=== PATIENT | female | born 1985 | race Two or more races ===

== ENCOUNTER → 2022-09-14 16:50 | Emergency (ER) | payer MEDICAID, OTHER ==
[~2022-09-14 16:50] MED LIST: BUPIVACAINE 0.25% INJ 50ML VIAL ONE; CEPH-510 PO; DOCU-94 PO; FERR1TAB36 PO; NITR-87 PO; TRAM50TA2 PO
== END | disposition left against medical advice (07) ==
LOC: ER 16:50
DX: R10.9 Unspecified abdominal pain (principal); Z53.21 Procedure and treatment not carried out due to patient leaving prior to being seen by health care provider

== ENCOUNTER 2022-09-15 04:02 | Inpatient (IN) | payer MEDICAID ==
[~2022-09-15] VITALS: Ht 160 cm; Wt 83.4 kg
[2022-09-15 05:45] LABS: Basophils # (auto) 0.1 10 ^3/uL (0-0.2); Basophils % (auto) 0.6 % (0.0-2.0); Eosinophils # (auto) 0.1 10 ^3/uL (0-0.8); Eosinophils % (auto) 0.9 % (0.0-7.0); Hematocrit 38.8 % (36.0-46.0); Hemoglobin 12.1 g/dL (12.2-16.2); Lymphocytes # (auto) 1.1 10 ^3/uL (0.4-5.4); Lymphocytes % (auto) 9.4 % (10.0-50.0); Mean Corpuscular Hemoglobin 26.8 pg (28.0-32.0); Mean Corpuscular Hgb Conc. 31.3 g/dL (32.0-36.0); Mean Corpuscular Volume 85.6 fL (80.0-100.0); Monocytes # (auto) 0.8 10 ^3/uL (0-1.3); Monocytes % (auto) 6.3 % (0.0-12.0); Neutrophils # (auto) 10.1 10 ^3/uL (1.6-8.6); Neutrophils % (auto) 82.8 % (37.0-80.0); Red Blood Cells 4.53 10^6/uL (4.0-5.20); White Blood Cell 12.2 10^3/uL (4.4-10.8)
[2022-09-15 06:08] LABS: Albumin 3.5 g/dL (3.4-5.0); Calcium 9.3 mg/dL (8.5-10.1); Potassium 4.4 mmol/L (3.5-5.1)
[2022-09-15 06:12] LABS: Bilirubin, Total 0.4 mg/dL (0.2-1.0)
[2022-09-15 06:34] LABS: Urine Bacteria FEW /hpf (None Seen); Urine Blood 3+ /uL (Negative); Urine Mucus FEW (None Seen); Urine Specific Gravity 1.014 (1.001-1.035); Urine WBC 4 /hpf (0 - 5)
[2022-09-15] MEDS ORDERED: LIDOCAINE VISCOUS 2% 15ML UD PO ONE (07:00)
[2022-09-15] MEDS ORDERED: ALUM & MAG HYDROX-SIMETH LIQ(MAALOX) 30 ML PO ONE (07:00)
[2022-09-15] MEDS ORDERED: DONNATAL 5ml ORAL Elix (BELLADONNA ALK-PHENOBARB) PO ONE (07:00)
[2022-09-15] MEDS ORDERED: NITR-87 PO (08:03)
[2022-09-15] MEDS ORDERED: ceFAZolin 1GM/50ML 50 ML IV ONE (09:15)
[2022-09-15] MEDS ORDERED: metroNIDAZOLE 500MG/100ML 100 ML IV ONE (09:15)
[2022-09-15] MEDS ORDERED: ONDANSETRON HCL 4 MG/2 ML VIAL IV PRN ×2 (09:45→13:45)
[2022-09-15] MEDS ORDERED: MORPHINE SULFATE INJ 2 MG/ml SYRG IV PRN (09:45)
[2022-09-15] MEDS ORDERED: HYDROcodone-ACET 5/325MG TAB PO PRN (09:45)
[2022-09-15] MEDS ORDERED: ACETAMINOPHEN 325 MG TAB PO PRN (09:45)
[2022-09-15] MEDS ORDERED: SODIUM CHLORIDE 0.9% 1,000 ML IV SCH (09:45)
[2022-09-15] MEDS ORDERED: SUCCINYLCHOLINE CHLORIDE 20 MG/ML 10ML VIAL IV ONE (11:39)
[2022-09-15] MEDS ORDERED: ROCURONIUM 10MG/ML 10ML VIAL IV ONE (11:39)
[2022-09-15] MEDS ORDERED: FAMOTIDINE (10MG/ML) 2ML VL IV ONE (11:39)
[2022-09-15] MEDS ORDERED: ceFAZolin 1GM/50ML 100 ML IV ONE (11:41)
[2022-09-15 11:43] LABS: INR 1.06 (0.9-1.15); Partial Thromboplastin Time 32.2 sec (24.6-33.4)
[2022-09-15] MEDS ORDERED: fentaNYL CITRATE 100 MCG/2 ML VL ONE (11:44)
[2022-09-15] MEDS ORDERED: HYDROmorphone HCL 2 MG/ML VL/or syr ONE (11:44)
[2022-09-15] MEDS ORDERED: MIDAZOLAM HCL 2MG/2ML 2ml VIAL (1mg/ml) ONE (11:44)
[2022-09-15] MEDS ORDERED: ONDANSETRON HCL 4 MG/2 ML VIAL ONE (11:45)
[2022-09-15] MEDS ORDERED: DexAMETHasone SOD PHOS 10MG/1ML VIAL INJ ONE (11:45)
[2022-09-15] MEDS ORDERED: LIDOCAINE 2% (LOCAL ANESTH.) PF 5ml SDV ONE (11:45)
[2022-09-15] MEDS ORDERED: KETOROLAC TROMETH 30 MG/ML 1ML VIAL ONE (11:45)
[2022-09-15] MEDS ORDERED: GLYCOPYRROLATE 0.2 MG/ML 1ML VIAL ONE (11:45)
[2022-09-15] MEDS ORDERED: ePHEDrine SULFATE 50 MG/ML AMP ONE (11:45)
[2022-09-15] MEDS ORDERED: PHENYLEPHRINE HCL 10 MG/ML VL ONE (11:45)
[2022-09-15] MEDS ORDERED: PROPOFOL 10 MG/ML 20 ML IV ONE (11:45)
[2022-09-15] MEDS ORDERED: KETAMINE HCL 10 ML ONE (11:47)
[2022-09-15 11:56] LABS: Partial Thromboplastin Time 30.8 sec (24.6-33.4)
[2022-09-15] MEDS ORDERED: MEPERIDINE HCL (50 MG/ML) 1 ML VIAL ONE (13:03)
[2022-09-15] MEDS ORDERED: HYDROmorphone HCL 2 MG/ML VL/or syr IV ONE (13:15)
[2022-09-15] MEDS ORDERED: HYDROmorphone HCL 2 MG/ML VL/or syr IV PRN (13:45)
[2022-09-15] MEDS ORDERED: metroNIDAZOLE 500MG/100ML 100 ML IV SCH (14:00)
[2022-09-15] MEDS: ceFAZolin 1GM/50ML 50 ML IV SCH ×2 (14:49→23:44)
[2022-09-15] MEDS: D5W/SOD CHL 0.45%/KCL 20MEQ 1,000 ML IV SCH ×2 (15:03→21:35)
[2022-09-15] MEDS: metroNIDAZOLE 500MG/100ML 100 ML IV SCH ×2 (15:17→22:45)
[2022-09-15 15:31] VITALS: BP 117/68
[2022-09-15 17:00] VITALS: BP 92/62
[2022-09-15] MEDS: ACETAMINOPHEN/CODEINE#3 (300/30mg) TAB PO PRN ×2 (17:25→22:46)
[2022-09-15] MEDS ORDERED: SODIUM CHLORIDE 0.9% 1,000 ML IV ONE (17:30)
[2022-09-15] MEDS: ONDANSETRON HCL 4 MG/2 ML VIAL IV PRN (18:22)
[2022-09-15 19:40] LABS: Hematocrit 28.3 % (36.0-46.0); Hemoglobin 8.9 g/dL (12.2-16.2)
[2022-09-15 22:00] VITALS: BP 94/59
[2022-09-16] MEDS: ACETAMINOPHEN/CODEINE#3 (300/30mg) TAB PO PRN (02:53)
[2022-09-16 05:00] VITALS: BP 91/51
[2022-09-16] MEDS: D5W/SOD CHL 0.45%/KCL 20MEQ 1,000 ML IV SCH ×2 (05:55→10:45)
[2022-09-16] MEDS: metroNIDAZOLE 500MG/100ML 100 ML IV SCH ×3 (06:22→23:09)
[2022-09-16] MEDS: ceFAZolin 1GM/50ML 50 ML IV SCH ×3 (06:22→23:09)
[2022-09-16 06:37] LABS: Basophils # (auto) 0 10 ^3/uL (0-0.2); Basophils % (auto) 0.1 % (0.0-2.0); Eosinophils # (auto) 0 10 ^3/uL (0-0.8); Hemoglobin 7.6 g/dL (12.2-16.2); Lymphocytes # (auto) 0.8 10 ^3/uL (0.4-5.4); Lymphocytes % (auto) 7.7 % (10.0-50.0); Mean Corpuscular Hemoglobin 27.7 pg (28.0-32.0); Mean Corpuscular Hgb Conc. 31.9 g/dL (32.0-36.0); Monocytes # (auto) 0.5 10 ^3/uL (0-1.3); Monocytes % (auto) 4.7 % (0.0-12.0); Neutrophils % (auto) 87.5 % (37.0-80.0); Red Blood Cells 2.76 10^6/uL (4.0-5.20); Red Cell Distribution Width 13.9 % (11.8-14.3); White Blood Cell 10.2 10^3/uL (4.4-10.8)
[2022-09-16 06:51] LABS: BUN/Creatinine Ratio 10.3; Calcium 8.5 mg/dL (8.5-10.1); Potassium 4.5 mmol/L (3.5-5.1)
[2022-09-16 08:38] VITALS: BP 108/69
[2022-09-16] MEDS: PANTOPRAZOLE 40 MG/10 ML VIAL INJ IV SCH (10:01)
[2022-09-16 13:51] VITALS: BP 100/49
[2022-09-16 16:26] VITALS: BP 91/46
[2022-09-16 22:00] VITALS: BP 98/50
[2022-09-17] VITALS (8 sets, daily range): BP systolic 90–117; BP diastolic 49–76
[2022-09-17] MEDS: D5W/SOD CHL 0.45%/KCL 20MEQ 1,000 ML IV SCH ×2 (00:05→17:41)
[2022-09-17] MEDS: ceFAZolin 1GM/50ML 50 ML IV SCH ×3 (05:38→21:30)
[2022-09-17] MEDS: metroNIDAZOLE 500MG/100ML 100 ML IV SCH ×3 (05:38→21:30)
[2022-09-17] MEDS: ACETAMINOPHEN/CODEINE#3 (300/30mg) TAB PO PRN (05:42)
[2022-09-17 05:46] LABS: Eosinophils # (auto) 0.1 10 ^3/uL (0-0.8); Hemoglobin 7.1 g/dL (12.2-16.2); Red Cell Distribution Width 14.1 % (11.8-14.3)
[2022-09-17 05:48] LABS: Basophils # (auto) 0 10 ^3/uL (0-0.2); Basophils % (auto) 0.7 % (0.0-2.0); Eosinophils % (auto) 1.4 % (0.0-7.0); Hematocrit 21.4 % (36.0-46.0); Lymphocytes # (auto) 2.1 10 ^3/uL (0.4-5.4); Lymphocytes % (auto) 28.7 % (10.0-50.0); Mean Corpuscular Hemoglobin 29.3 pg (28.0-32.0); Mean Corpuscular Hgb Conc. 33.3 g/dL (32.0-36.0); Monocytes # (auto) 0.5 10 ^3/uL (0-1.3); Monocytes % (auto) 6.4 % (0.0-12.0); Neutrophils # (auto) 4.5 10 ^3/uL (1.6-8.6); Neutrophils % (auto) 62.8 % (37.0-80.0); Nucleated Red Blood Cells % 0.1 %; Red Blood Cells 2.43 10^6/uL (4.0-5.20); White Blood Cell 7.2 10^3/uL (4.4-10.8)
[2022-09-17] MEDS: ONDANSETRON HCL 4 MG/2 ML VIAL IV PRN (08:16)
[2022-09-17] MEDS: PANTOPRAZOLE 40 MG/10 ML VIAL INJ IV SCH (09:23)
[2022-09-18] MEDS: D5W/SOD CHL 0.45%/KCL 20MEQ 1,000 ML IV SCH ×2 (02:45→15:56)
[2022-09-18 05:00] VITALS: BP 108/74
[2022-09-18] MEDS: ceFAZolin 1GM/50ML 50 ML IV SCH ×3 (05:50→14:21)
[2022-09-18] MEDS: metroNIDAZOLE 500MG/100ML 100 ML IV SCH ×2 (05:51→14:21)
[2022-09-18 06:09] LABS: Basophils # (auto) 0.1 10 ^3/uL (0-0.2); Basophils % (auto) 1.2 % (0.0-2.0); Eosinophils # (auto) 0.2 10 ^3/uL (0-0.8); Eosinophils % (auto) 2.7 % (0.0-7.0); Hematocrit 26.9 % (36.0-46.0); Hemoglobin 8.7 g/dL (12.2-16.2); Lymphocytes # (auto) 1.9 10 ^3/uL (0.4-5.4); Lymphocytes % (auto) 33.1 % (10.0-50.0); Mean Corpuscular Hemoglobin 28.5 pg (28.0-32.0); Mean Corpuscular Hgb Conc. 32.2 g/dL (32.0-36.0); Mean Corpuscular Volume 88.4 fL (80.0-100.0); Monocytes # (auto) 0.4 10 ^3/uL (0-1.3); Monocytes % (auto) 7.7 % (0.0-12.0); Neutrophils # (auto) 3.2 10 ^3/uL (1.6-8.6); Neutrophils % (auto) 55.3 % (37.0-80.0); Nucleated Red Blood Cells % 0.1 %; Red Blood Cells 3.04 10^6/uL (4.0-5.20); Red Cell Distribution Width 14.5 % (11.8-14.3); White Blood Cell 5.8 10^3/uL (4.4-10.8)
[2022-09-18 08:00] VITALS: BP_SYST 103; BP_SYST 116; BP_SYST 148; BP_DIAS 57; BP_DIAS 71; BP_DIAS 72
[2022-09-18] MEDS: PANTOPRAZOLE 40 MG/10 ML VIAL INJ IV SCH (09:14)
[2022-09-18] MEDS ORDERED: FERR1TAB36 PO (11:32)
[2022-09-18] MEDS ORDERED: DOCU-94 PO (11:32)
[2022-09-18] MEDS ORDERED: CEPH-510 PO (11:32)
[2022-09-18] MEDS ORDERED: TRAM50TA2 PO (11:32)
[2022-09-18 12:00] VITALS: BP 103/57
[2022-09-18 13:26] VITALS: BP 103/57
== END 2022-09-18 17:05 | disposition home or self-care (01) | DRG 710 ==
LOC: ER 04:05 → OVERFLOW 10:02 → WEST WING 14:41
PROVIDERS: ADMIT Registered Nurse; ATTEND Internal Medicine
PROC: 0DTJ4ZZ Resection of Appendix, Percutaneous Endoscopic Approach (ICD-10-PCS; principal; 2022-09-15 12:17)
PROC: 30233N1 Transfusion of Nonautologous Red Blood Cells into Peripheral Vein, Percutaneous Approach (ICD-10-PCS; 2022-09-17)
DX: A41.9 Sepsis, unspecified organism (principal); K35.80 Unspecified acute appendicitis; D64.9 Anemia, unspecified; E66.9 Obesity, unspecified; N92.0 Excessive and frequent menstruation with regular cycle; Z20.822 Contact with and (suspected) exposure to COVID-19; Z68.32 Body mass index [BMI] 32.0-32.9, adult
CPT/HCPCS: 36415; 74176; 80048; 80053; 81001; 81025; 82150; 83605; 83690; 85014; 85018; 85025; 85610; 85730; 86850; 86900; 86901; 86920; 87040; 87426; 96361; 96365; 96375; C9113; G0378; J0330; J0690; J1100; J1885; J2001; J2250; J2405; J2704; J3490